=== PATIENT | female | born 2000 | race Caucasian/White ===

== ENCOUNTER 2022-05-03 17:22 | Outpatient (REF) | payer BC, SELFPAY ==
[2022-05-03 17:46] LABS: Basophils Percent Auto 0.4 % (0.0-3.0); Eosinophils Percent Auto 1.1 % (0.0-7.0); Hematocrit 37.6 % (33.0-51.0); Lymphocytes Percent Auto 28.6 % (20-44); Mean Corpuscular HGB Conc 32 gm/dL (32-36); Mean Corpuscular Hemoglobin 26 pg (26-34); Mean Corpuscular Volume 82 fL (80-100); Monocytes Percent Auto 15.2 % (0.0-11.0); Neutrophils Percent Auto 54.7 % (42.0-72.0); Platelet Count* 153 K/uL (140-440); RDW Coefficient of Variation % 14.4 % (11.5-15.5); Red Blood Count 4.61 m/uL (4.00-5.20); White Blood Count* 2.83 K/uL (4.50-11.00)
[2022-05-03 17:58] LABS: Slide Review Reflex No
[2022-05-03 18:13] LABS: Chloride* 105 mmol/L (96-114); Potassium* 3.9 mmol/L (3.6-5.1); Sodium* 137 mmol/L (135-149)
[2022-05-03 18:16] LABS: Blood Urea Nitrogen* 8 mg/dL (5-24); Carbon Dioxide* 20 mmol/L (20-32); Creatinine* 0.5 mg/dL (0.5-1.5); Estimated Glomerular Filt Rate 138 ml/min; Glucose* 90 mg/dL (60-115)
[2022-05-03 18:17] LABS: Calcium* 9.2 mg/dL (8.4-10.6)
[2022-05-07 11:46] LABS: Sex Hormone Binding Globulin 53 nmol/L (25-122); Testosterone, Adult Male 50 ng/dL; Testosterone, Free Calculation 6 pg/mL; Testosterone, Percentage Free 1.3 %
== END 2022-05-03 17:23 | disposition home or self-care (01) ==
LOC: NPINS 17:22
PROVIDERS: Visit Provider Physician Assistant Medical
DX: F64.9 Gender identity disorder, unspecified (principal)
CPT/HCPCS: 80048; 84270; 84402; 84403; 85025

== ENCOUNTER 2022-12-13 14:58 | Outpatient (CLI) | payer BC, SELFPAY | END 2022-12-13 14:59 | disposition home or self-care (01) | LOC: NFLDREF 12-14 10:37 | PROVIDERS: PCP Obstetrics & Gynecology; Referring Provider Obstetrics & Gynecology; Visit Provider Obstetrics & Gynecology | DX: Z79.899 Other long term (current) drug therapy (principal) | CPT/HCPCS: 80061; 82947; 84450; 84460 ==

== ENCOUNTER 2022-12-14 16:18 | Emergency (ER) | payer BC, SELFPAY ==
[2022-12-14 16:22] VITALS: BP 119/76; PULSE 86; RESP 18; TEMP 36.4; O2SAT 99; BMI 26.6
--- NOTE | 2022-12-14 16:28 | CRLHL7_ITS ---
For Patients: As a result of the Cures Act, medical imaging exams and procedure reports are released immediately into your electronic medical record. You may view this report before your referring provider. If you have questions, please contact your health care provider. Indication: Pain after punching a wall Technique: Three views right hand Comparison: None Findings: Bones: Alignment is normal. No fractures or bone lesions. Joint spaces: Unremarkable. Soft tissues: Unremarkable. Impression: Negative. Dictated by Mitzi Melendez MD @ 12/14/2022 5:40:49 PM (Electronically Signed)
--- NOTE | 2022-12-14 16:28 | ED.GENADULT ---
HPI - General Adult General Chief complaint: Extremity Pain/Injury, Upper Stated complaint: R hand injury Time Seen by Provider: 12/14/22 16:21 History of Present Illness HPI narrative: This 22-year-old comes in with an injury to the right hand. Last evening he/she punched a wall and now he comes in with pain and swelling over the MP joints of the index and middle finger. There is no report of any other injury. Related Data Home Medications Medication Instructions Recorded Confirmed levetiracetam 750 mg tablet 750 mg PO BID 12/13/22 12/13/22 (Keppra) methylphenidate HCl 27 mg 27 mg PO QDAY 12/13/22 12/13/22 tablet,extended release 24 hr (Concerta) testosterone enanthate 50 mg/0.5 50 mg subcut QWEEK 12/13/22 12/13/22 mL subcutaneous auto-injector Previous Rx's Medication Instructions Recorded needle (disp) 18 G 18 gauge x 1 #100 ea 12/14/22 1/2 (BD Regular Bevel [place]) syringe with needle 1 mL 28 gauge #100 ea 12/14/22 x 1/2 (Monoject TB) testosterone cypionate 200 mg/mL 50 mg (0.25 mL) subcut QWEEK #1 mL 12/14/22 intramuscular oil Allergies Allergy/AdvReac Type Severity Reaction Status Date / Time No Known Drug Allergies Allergy Verified 12/13/22 13:43 Review of Systems Status of ROS: Reports: 10 or more systems reviewed and unremarkable except as noted in History and below Narrative: Constitutional: No fevers, no weight gain or loss. Eyes: No discharge. No vision changes. HENT: No congestion, no sore throat, no ear pain. Cardiovascular: No chest pain, no palpitations. Respiratory: No shortness of breath, no wheezes, no cough. Gastrointestinal: No abdominal pain, no vomiting, no diarrhea. Genitourinary: No dysuria, no hematuria. Musculoskeletal: Right hand pain and swelling. Skin: No rashes, no pruritis. Neurological: No dizziness, weakness, sensory change, speech change. Endo/Heme/Allergies: No bruising or bleeding. No polydipsia. Pysch: no suicidality, no anxiety, no insomnia. All other systems reviewed and are negative. [facility] Medical History (Updated 12/14/22 @ 17:46 by Geoff Sheriff MD) Seizure disorder ?G40.909 - Epilepsy, unspecified, not intractable, without status epilepticus (ICD-10) Migraine with aura ?G43.109 - Migraine with aura, not intractable, without status migrainosus (ICD-10) Anxiety ?F41.9 - Anxiety disorder, unspecified (ICD-10) Depression ?F32.A - Depression, unspecified (ICD-10) Surgical History (Updated 12/14/22 @ 15:49 by Rox Barcenas MD) H/O mastectomy ?Z90.10 - Acquired absence of unspecified breast and nipple (ICD-10) Family History (Updated 12/14/22 @ 15:50 by Rox Barcenas MD) Other Breast cancer High blood pressure Social History Smoking Status: Never smoker Exam Narrative: Exam Narrative: Constitutional: Well-developed, well-nourished, no acute distress. HEENT: Normocephalic, atraumatic. Neck: Normal range of motion. Nontender. Supple. Heart: Intact distal pulses. Lungs: No chest discomfort. No wheezes, rhonchi, or rales. Abdomen: Nontender. Back: Normal range of motion. Extremities: Swelling over the MP joints of the index and middle finger of the right hand extending proximally into the hand. No skin injury. Range of motion is intact. Skin: Intact. No rash. Warm. No erythema or pallor. Neurologic: No altered sensation. No weakness. Alert and oriented. Psychiatric: No suicidality. No anxiety or depression. No insomnia. Nursing notes and vitals signs are reviewed. Const: Vital Signs, click to edit/add: Vital Signs - 24 hr 12/14/22 16:22 Temperature 97.5 F L Pulse Rate [Right Pulse Oximeter] 86 Respiratory Rate 18 Blood Pressure [Ri ght Upper Arm] 119/76 Pulse Oximetry 99 Oxygen Delivery Me thod Room Air Course Vital Signs Vital signs: Initial Vital Signs Temperature 97.5 F L 12/14/22 16:22 Temperature Source Temporal Artery Scan 12/14/22 16:22 Pulse Rate 86 12/14/22 16:22 Respiratory Rate 18 12/14/22 16:22 Blood Pressure 119/76 12/14/22 16:22 Blood Pressure Mean 90 12/14/22 16:22 Blood Pressure Position Sitting 12/14/22 16:22 Pulse Oximetry 99 12/14/22 16:22 Oxygen Delivery Method Room Air 12/14/22 16:22 Vital Signs Temperature 97.5 F L 12/14/22 16:22 Pulse Rate 86 12/14/22 16:22 Respiratory Rate 18 12/14/22 16:22 Blood Pressure 119/76 12/14/22 16:22 Pulse Oximetry 99 12/14/22 16:22 Oxygen Delivery Method Room Air 12/14/22 16:22 Temperature 97.5 F L 12/14/22 16:22 Pulse Rate 86 12/14/22 16:22 Respiratory Rate 18 12/14/22 16:22 Blood Pressure 119/76 12/14/22 16:22 Pulse Oximetry 99 12/14/22 16:22 Oxygen Delivery Method Room Air 12/14/22 16:22 Medical Decision Making MDM Narrative Medical decision making narrative: X-ray imaging of the right hand shows no sign of fracture dislocation. The patient did receive an Blaise wrap for added comfort and protection. [id number] medicines can be used as needed and directed. Imaging Data XR R Hand: Radiologist's impression: Negative. Discharge Plan Discharge Clinical Impression: Contusion of hand, right Patient Disposition: Home, Self-Care Condition: Stable Additional Instructions: Increase activity as tolerated. Use [id number] medicines as needed and directed. Follow up with MD or return if worsening. Prescriptions: No Action levetiracetam [Keppra] 750 mg tablet 750 mg PO BID methylphenidate HCl [Concerta] 27 mg tablet extended release 24hr 27 mg PO QDAY testosterone enanthate 50 mg/0.5 mL auto-injector 50 mg subcut QWEEK testosterone cypionate 200 mg/mL oil 50 mg subcut QWEEK Qty: 1 5RF (DME) Monoject TB 1 mL 28 gauge x 1/2 syringe See Rx Instructions .ROUTE .MEDSUPPLY Qty: 100 0RF Rx Instructions: As directed (DME) BD Regular Bevel [place] 18 gauge x 1 1/2 needle See Rx Instructions .Route Qty: 100 0RF Rx Instructions: As directed Follow Up/Referrals: Provider,Not a Local [Primary Care Provider] - Stand Alone [facility]: [facility]
== END 2022-12-14 17:57 | disposition home or self-care (01) ==
PROVIDERS: Emergency Provider Emergency Medicine Emergency Medical Services
DX: S60.221A Contusion of right hand, initial encounter (principal); W22.8XXA Striking against or struck by other objects, initial encounter
CPT/HCPCS: 73130; 99283; 99284

== ENCOUNTER 2022-12-27 01:58 | Outpatient (CLI) | payer BC, SELFPAY | END 2022-12-27 01:59 | disposition home or self-care (01) | PROVIDERS: Visit Provider Family Medicine | DX: R45.851 Suicidal ideations (principal) | CPT/HCPCS: A0425; A0428 ==

== ENCOUNTER 2023-02-16 09:16 | Outpatient (CLI) | payer BC, SELFPAY | END 2023-02-16 09:17 | disposition home or self-care (01) | LOC: NFLDREF 14:21 | PROVIDERS: Visit Provider Obstetrics & Gynecology | DX: D64.9 Anemia, unspecified (principal); Z79.899 Other long term (current) drug therapy | CPT/HCPCS: 83540; 83550; 84403 ==